=== PATIENT | male | born 1960 | race African-American/Black ===

== ENCOUNTER → 2016-05-19 | Outpatient (CLI) | payer BC ==
--- NOTE | 2016-05-19 10:49 | RAD ---
Right elbow, 3 views, 05/19/2016: History: Elbow pain No fracture or dislocation is identified. There is only minimal spurring at the elbow joint. No joint effusion is seen. IMPRESSION: No acute right elbow abnormality is detected.
== END | disposition home or self-care (01) ==
LOC: RAD 10:05
PROVIDERS: ATTEND Pediatrics
DX: M25.521 Pain in right elbow (principal)
CPT/HCPCS: 73080